=== PATIENT | female | born 1980 | race Two or more races ===

== ENCOUNTER 2024-10-11 18:01 | Emergency (ER) | payer MEDICAID, SELFPAY ==
[2024-10-11 18:20] VITALS: BP 120/75; PULSE 74; RESP 17; TEMP 37; O2SAT 99; BMI 24.7
--- NOTE | 2024-10-11 18:28 | XR_ITS ---
Examination: CT abdomen and pelvis without contrast. Coronal 3-D reconstructions. Sagittal 2-D reconstructions. Date and time of exam:October 11, 2024 at 0740 hrs. Comparison December 03, 2023 Indications: Onset right flank pain beginning 2 days ago, history kidney stones CTDI: vol (mGy): 7.1 DLP: (mGycm): 333 Technique: Axial images of the abdomen have been obtained, 3 mm slice thickness Intravenous contrast material has not been administered. Low dose protocols were performed. One or more of the following dose reduction techniques were used; automated exposure control, adjustment of the mA and/or KV according to patient size, use of iterative reconstruction technique. Findings: No focal liver or splenic lesions Absent gallbladder No pancreatic or adrenal mass 2 mm lower pole right renal calculus, no hydronephrosis or ureteral calculi Aorta normal size No pericecal inflammatory change No bowel obstruction or diverticulitis Retroverted uterus No adnexal mass Trace free fluid in the pelvis Minimal thickening of the urinary bladder wall Osseous structures intact Impression: 2 mm lower pole nonobstructing right renal calculus No CT findings of appendicitis diverticulitis or bowel obstruction Mild cystitis pattern
--- NOTE | 2024-10-11 18:29 | PD.EDRME ---
Rapid Medical Screening Exam RME Arrival date/time: 10/11/24 18:01 44-year-old female with past medical history of cholecystectomy presents emergency department complaining of diffuse abdominal pain and right flank pain that is been ongoing for 2 days. Chief Complaint: Abdominal Pain Time Seen by Provider: 10/11/24 18:15 Vital signs: Vital Signs Temperature 98.6 F 10/11/24 18:20 Pulse Rate 74 10/11/24 18:20 Respiratory Rate 17 10/11/24 18:20 Blood Pressure 120/75 10/11/24 18:20 Pulse Oximetry (%) 99 10/11/24 18:20 Oxygen Delivery Method Room Air 10/11/24 18:20 Vital signs reviewed by provider: Yes
[2024-10-11 18:51] LABS: Basophils % (Auto) 1 % (0-2.5); Eosinophils # (Auto) 0.1 Thou/mm3 (0.0-0.5); Eosinophils % (Auto) 1 % (0-10); Hematocrit 39.3 % (36.0-46.0); Hemoglobin 13.6 g/dL (12.0-16.0); Immature Granulocytes % (Auto) 1 % (0-0); Immature Granulocytes Auto 0.05 Thou/mm3 (0.00-0.00); Lymphocytes # (Auto) 2.9 Thou/mm3 (1.0-4.8); Lymphocytes % (Auto) 44 % (10-50); Mean Corpuscular HGB Conc 34.6 g/dl (31.0-37.0); Mean Corpuscular Hemoglobin 31.6 pg (25.0-35.0); Mean Corpuscular Volume 91 fL (80-100); Monocytes # (Auto) 0.5 Thou/mm3 (0.0-0.8); Monocytes % (Auto) 8 % (0-12); Neutrophils # (Auto) 3.1 Thou/mm3 (1.8-7.7); Neutrophils % (Auto) 47 % (37-80); Nucleated Red Blood Cell % 0 /100 WBC (0); Platelet Count 325 Thou/mm3 (140-440); RDW Standard Deviation 41.6 fL (36.4-46.3); Red Blood Count 4.31 Miln/mm3 (4.00-5.20); White Blood Count 6.6 Thou/mm3 (3.6-11.0)
[2024-10-11 19:04] LABS: Alanine Aminotransferase 10 U/L (10-49); Albumin, Serum 4.7 gm/dL (3.5-5.0); Albumin/Globulin Ratio 1.7 (1.2-2.2); Alkaline Phosphatase 106 U/L (46-116); Anion Gap 10 (7-16); Aspartate Amino Transferase < 10 U/L (0-34); BUN/Creatinine Ratio 12 Ratio (12-20); Bilirubin,Total 0.3 mg/dL (0.3-1.2); Blood Urea Nitrogen 11 mg/dL (9-23); Calcium 9.5 mg/dL (8.3-10.6); Calcium (Corrected) 9.5 mg/dL (8.5-10.1); Carbon Dioxide 23.2 mMol/L (20.0-31.0); Chloride 106 mMol/L (98-107); Creatinine (Component) 0.9 mg/dL (0.6-1.3); Estimated Creatinine Clearance 67.4 mL/min (>60); Globulin 2.7 gm/dL (2.3-3.5); Glucose 97 mg/dL (74-106); Lipase 62 U/L (12-53); Osmolality,Calculated 276 (275-295); Potassium 3.9 mMol/L (3.4-5.1); Sodium 139 mMol/L (136-145); Total Protein 7.4 gm/dL (5.7-8.2); eGFR > 60 See Note
[2024-10-11 19:08] LABS: HCG,Qualitative Serum Negative
[2024-10-11] MEDS: KETOROLAC INJ 60 MG/2 ML VIAL 30 MG IM (19:10)
[2024-10-11 19:36] LABS: Collection Type, Urine Clean Catch; RBC,Urine 0 /hpf (0-3); WBC,Urine 0 /hpf (0-5)
[2024-10-11 19:46] LABS: Bacteria,Urine 1+; Bilirubin,Urine Negative (Negative); Blood,Urine Negative (Negative); Clarity,Urine Clear (Clear/Hazy); Color,Urine Colorless (Lt Yel-Yel); Glucose, Urine Negative (Negative); Ketones,Urine Negative (Negative); Leukocyte Esterase,Urine Positive (Negative); Nitrite,Urine Negative (Negative); Protein,Urine Negative (Neg - Trace); Specific Gravity,Urine 1.013 (1.001-1.035); Squamous Epithelial Cell,Urine 3 /hpf (0-5); Urobilinogen,Urine Negative mg/dL (0.0-1.0)
[2024-10-11 19:47] LABS: Culture Indicated,Urine Yes
--- NOTE | 2024-10-11 20:35 | PD.EDABDPN ---
ED Abdominal Pain RME/HPI General Chief Complaint: Abdominal Pain Stated complaint: ABD AQUINO RADIATING TO RIGHT FLANK x 2 DAYS Time seen by provider: 10/11/24 18:15 Arrival date/time: 10/11/24 18:01 44-year-old female with past medical history of cholecystectomy presents emergency department complaining of diffuse abdominal pain and right flank pain that is been ongoing for 2 days. Patient denies any fever, chills, nausea vomiting, vaginal bleeding, or any other associated symptom. Limitations: no limitations RME / HPI RME / HPI narrative: 10/11/24 18:01 44-year-old female with past medical history of cholecystectomy presents emergency department complaining of diffuse abdominal pain and right flank pain that is been ongoing for 2 days. Related Data Home Medications ?Medication ?Instructions ?Recorded ?Confirmed folic acid 1 mg tablet 1 mg PO BID 30 days ##0 12/20/11 06/15/24 levetiracetam 1,000 mg tablet 1,000 mg PO BID 12/05/18 06/15/24 oxybutynin chloride 5 mg tablet 6 mg BID 04/22/23 06/15/24 sucralfate 1 gram tablet 1 g PO BID 04/22/23 06/15/24 Previous Rx's ?Medication ?Instructions ?Recorded fluconazole 150 mg tablet 150 mg PO .x1 1 dose #1 tab 03/02/24 ciprofloxacin HCl 500 mg tablet 500 mg PO BID #14 tabs 03/23/24 pantoprazole 40 mg tablet,delayed 40 mg PO QDAY #30 tabs 04/06/24 release dicyclomine 10 mg capsule 10 mg PO TID #30 caps 05/12/24 naproxen 250 mg tablet 250 mg PO BID PRN Period cramps 05/12/24 #10 tabs cephalexin 500 mg capsule 500 mg PO BID 7 days #14 caps 10/11/24 ibuprofen 600 mg tablet 600 mg PO Q8H PRN pain #20 tabs 10/11/24 Allergies Allergy/AdvReac Type Severity Reaction Status Date / Time No Known Allergies Allergy Verified 10/11/24 18:04 Review of Systems Review of Systems Systems Reviewed: All systems reviewed, normal except as documented Constitutional Constitutional: Reports system reviewed and no additional complaints, except as documented, Denies body ache(s), Denies chills and Denies fever(s) Eyes Eyes: Reports system reviewed and no additional complaints, except as documented and Denies change in vision ENT Ears, Nose, Mouth, and Throat: Reports system reviewed and no additional complaints, except as documented, Denies disequilibrium, Denies dizziness, Denies sore throat and Denies vertigo Cardiovascular Cardiovascular: Reports system reviewed and no additional complaints, except as documented, Denies chest pain and Denies dyspnea Respiratory Respiratory: Reports system reviewed and no additional complaints, except as documented, Denies chest congestion, Denies cough and Denies dyspnea Gastrointestinal Gastrointestinal: Reports system reviewed and no additional complaints, except as documented, Reports abdominal pain, Denies nausea and Denies vomiting Musculoskeletal Musculoskeletal: Reports system reviewed and no additional complaints, except as documented, Denies abnormal gait and Denies arthralgias Integumentary/Breasts Skin/Breast: Reports system reviewed and no additional complaints, except as documented, Denies erythema, Denies rash and Denies wounds Neurologic Neurologic: Reports system reviewed and no additional complaints, except as documented, Denies abnormal gait, Denies disequilibrium, Denies dizziness and Denies vertigo Past Medical History Past Medical History NEUROLOGIC: Positive Neurological Disorders, Seizures, Epilepsy and Migraine CARDIAC: Negative Cardiac Disorders, Cardiac Arrhythmia, Atrial Fibrillation, Angina, Atherosclerotic Heart Disease, Aneurysm or Congestive Heart Failure RESPIRATORY: Negative Chronic Obstructive Pulmonary Disease (COPD) or Asthma GASTROINTESTINAL: Positive Gastrointestinal Disorders, Gall Bladder Disease and Ulcer GENITOURINARY: Positive Genitourinary Disorders and Kidney Stones; Negative Renal Disease REPRODUCTIVE: Positive Previous Pregnancies MUSCULOSKELETAL: Negative Musculoskeletal Disorders ENDOCRINE: Negative Endocrine Disorders, Diabetes Mellitus Type 1 or Diabetes Mellitus Type 2 HEMATOLOGIC: Negative Blood Disorders or Sickle Cell Disease PSYCHO/SOCIAL: Positive Depression and Anxiety OTHER HISTORY: Positive Hospitalization, Blood Transfusions and Chicken Pox; Negative Autoimmune Disease, Blood Transfusion Reaction, Anesthesia Reactions or Cancer Family History FAMILY HISTORY: Positive Family Respiratory Disorders, Family Cardiac Disorders and Family Cancer; Negative Family Psychiatric Problems, Family Gastrointestinal Problems, Family Surgery or Family Anesthesia Reaction Surgical History SURGICAL: Positive Abdominal Surgery; Negative Cardiac Surgery, Endocrine Surgery, Ear Surgery, Joint Replacement, Neurologic Surgery or Mastectomy Social History SMOKING STATUS: Never smoker ED Exam General Limitations: Present no limitations General appearance: Present alert and in no apparent distress Head Head exam: Present atraumatic Eye Eye exam: Present normal appearance, PERRL and EOMI ENT ENT exam: Present normal exam, normal oropharynx and mucous membranes moist Neck Neck exam: Present normal inspection, full ROM and trachea midline Chest Chest inspection: Present normal inspection and symmetric chest wall rise Respiratory Respiratory exam: Present normal lung sounds bilaterally Cardiovascular Cardiovascular exam: Present regular rate, normal rhythm and normal heart sounds Abdominal Exam Abdominal exam: Present soft and normal bowel sounds Extremities Exam Extremities exam: Present normal inspection and full ROM Back Exam Back exam: Present normal inspection, full ROM and CVA tenderness (R) Neurological Exam Neurological exam: Present alert, oriented X3 and CN II-XII intact Psychiatric Psychiatric exam: Present normal affect and normal mood Skin Skin exam: Present warm, dry, intact and normal color Course Quality Measures none Orders Category Date Time Status CT abdomen pelvis wo con Stat Exams 10/11/24 18:28 Completed CBC Stat Lab 10/11/24 18:37 Completed CMP [Comprehensive Metabolic Panel] Stat Lab 10/11/24 18:37 Completed HCG,Qualitative Serum Stat Lab 10/11/24 18:37 Completed Lipase Stat Lab 10/11/24 18:37 Completed Urinalysis, C/S if Indicated Stat Lab 10/11/24 19:25 Completed Urine Culture Stat Lab 10/11/24 19:25 Received Ketorolac Inj [Toradol Inj] Med 10/11/24 18:29 Discontinued 30 mg IM X1 ONE Vital Signs Vital signs: Vital Signs Temperature 98.6 F 10/11/24 18:20 Pulse Rate 74 10/11/24 18:20 Respiratory Rate 17 10/11/24 18:20 Blood Pressure 120/75 10/11/24 18:20 Pulse Oximetry (%) 99 10/11/24 18:20 Oxygen Delivery Method Room Air 10/11/24 18:20 99% room air within normal limits Abdominal Pain MDM MDM Narrative MDM Narrative:: 44-year-old female with past medical history of cholecystectomy presents emergency department complaining of diffuse abdominal pain and right flank pain that is been ongoing for 2 days. Patient denies any fever, chills, nausea vomiting, vaginal bleeding, or any other associated symptom. CBC unremarkable for any leukocytosis or anemia. CMP was unremarkable for any elevated LFTs or gross electrolyte abnormalities. Urinalysis consistent with UTI. CT findings: No focal liver or splenic lesions Absent gallbladder No pancreatic or adrenal mass 2 mm lower pole right renal calculus, no hydronephrosis or ureteral calculi Aorta normal size No pericecal inflammatory change No bowel obstruction or diverticulitis Retroverted uterus No adnexal mass Trace free fluid in the pelvis Minimal thickening of the urinary bladder wall Osseous structures intact Impression: 2 mm lower pole nonobstructing right renal calculus No CT findings of appendicitis diverticulitis or bowel obstruction Mild cystitis pattern Will treat urinary tract infection. Patient appears nontoxic and is hemodynamically stable. Patient data External records reviewed:: [facility] previous records Clinical information provided by:: patient Social determinants that could affect healthcare access:: none Patient has the following chronic illnesses:: See chart How is presenting disease/condition affected by chronic disease/condition?: uneffected by Evaluation data The following diagnostics were reviewed and interpreted by me:: lab results and radiology exam(s) Lab and/or radiology exams considered but not ordered:: Ordered Interpretation Summary: Interpreted by me Medications / Prescriptions Medications or Prescriptions considered but not ordered:: Ordered Medication administrations:: Medication Administration History Discontinued Medications Ketorolac Tromethamine (Ketorolac Inj 60 Mg/2 Ml Vial) 30 mg IM X1 ONE Stop: 10/11/24 18:30 Last Admin: 10/11/24 19:10 Dose: 30 mg Documented By: SF Given Consultations Consultation(s) initiated? (list below): No Diagnosis Differential diagnosis abdominal pain: abdominal pain, acute appendicitis, calculus of kidney, constipation, diverticulitis, endometriosis, gastroenteritis, pancreatitis and small bowel obstruction Most likely diagnosis given after review of the tests above:: UTI Right renal calculus Admission Indicated Admission indicated?: not indicated Admission Request Was there a request for admission?: No Disposition Plan Disposition Plan: Discharge Discharge Attestation Discharge Attestation: The patient and all family members were given an opportunity to ask questions and understood the discharge instructions. Discharge instructions specifically effects, indications for sooner follow up or return to the emergency department, and the expected course of current diagnosis. Patient condition: Stable Discharge Plan Plan Patient Disposition: HOME (Self Care) Disposition Comment: Stable Prescriptions/Referrals Prescriptions/Med Rec: New cephalexin 500 mg capsule 500 mg PO BID 7 Days Qty: 14 0RF ibuprofen 600 mg tablet 600 mg PO Q8H PRN (Reason: pain) Qty: 20 0RF No Action dicyclomine 10 mg capsule 10 mg PO TID Qty: 30 0RF naproxen 250 mg tablet 250 mg PO BID PRN (Reason: Period cramps) Qty: 10 0RF fluconazole 150 mg tablet 150 mg PO .x1 Qty: 1 0RF ciprofloxacin HCl 500 mg tablet 500 mg PO BID Qty: 14 0RF pantoprazole 40 mg tablet,delayed release (DR/EC) 40 mg PO QDAY Qty: 30 0RF folic acid 1 MG tablet 1 mg PO BID 30 Days Qty: 0 levetiracetam 1,000 mg Tablet 1,000 mg PO BID Rx Instructions: 1 tab in am, 2 tabs at hs sucralfate 1 gram tablet 1 g PO BID Patient Comments: TAKE 1 TABLET BY MOUTH TWICE A DAY FOR STOMACH oxybutynin chloride 5 mg tablet 6 mg BID Patient Comments: TAKE 1 TABLET BY MOUTH TWICE A DAY FOR URINE Referrals: Aleksandr Andrade MD [Primary Care Provider] - In 1 week Problem List Clinical Impression: UTI (urinary tract infection), Renal calculus, right Patient/Caregiver Discharge Instructions Discharge Activity: activity as tolerated Education Materials: Preventing Kidney Stones, ED CYSTITIS Female Adult Additional Instructions: Drink plenty of fluids and stay hydrated. Take antibiotics as prescribed. Follow-up with primary care provider in 2 to 3 days. Return to emergency department for any worsening symptoms or as needed. Print Language: Slovenian Stand Alone Forms: [facility] Award Info., Patient Portal Info Letter PA/OVERHEAD IRRIGATOR Supervising Physician PA/JUDITH Supervising Physician: Dr. Payton
== END 2024-10-11 20:48 | disposition home or self-care (01) ==
PROVIDERS: Emergency Provider Emergency Medicine; PCP Psychiatry & Neurology Neurology
DX: N39.0 Urinary tract infection, site not specified (principal); N20.0 Calculus of kidney; Z90.49 Acquired absence of other specified parts of digestive tract
CPT/HCPCS: 36415; 74176; 80053; 81001; 83690; 84703; 85025; 87086; 96372; 99284; J1885

== ENCOUNTER → 2025-01-27 | Outpatient (CLI) | payer MEDICAID, SELFPAY ==
--- NOTE | 2025-01-27 09:00 | XR_ITS ---
Examination: Screening digital mammography, bilateral Computer aided detection 3-D breast Tomosynthesis, bilateral Date and time of exam: January 27, 2025 0839 hours Compared to mammograms dating to November 28, 2021 Indication: Screening Technique: Nonmagnified MLO, CC views of the breasts to been obtained, reconstructed from 3-D Tomosynthesis images. R2 computer aided detection program utilized for evaluation of suspicious masses and/or abnormal calcifications. 3-D Tomosynthesis images obtained. Findings: The breasts are heterogeneously dense, which may obscure small masses Stable nodule inner left breast, 12 mm Breast biopsy marker outer left breast anterior depth Impression: BI-RADS Category 0 clinical pain: Need additional imaging evaluation Bilateral breast sonography follow-up is needed, especially 2 compared to the left breast sonogram nodules described on ultrasound July 10, 2024
== END | disposition home or self-care (01) ==
LOC: CDIM 08:23
PROVIDERS: Referring Provider Physician Assistant; Visit Provider Physician Assistant
DX: Z12.31 Encounter for screening mammogram for malignant neoplasm of breast (principal); N63.20 Unspecified lump in the left breast, unspecified quadrant
CPT/HCPCS: 77063; 77067

== ENCOUNTER 2025-02-02 02:07 | Emergency (ER) | payer MEDICAID, SELFPAY ==
[2025-02-02 02:08] VITALS: BMI 25.4
[2025-02-02 02:33] VITALS: BP 108/74; PULSE 77; RESP 16; TEMP 36.8; O2SAT 98
[2025-02-02 05:41] VITALS: BP 116/79; PULSE 70; RESP 18; TEMP 36.8; O2SAT 100
--- NOTE | 2025-02-02 06:19 | PD.EDRME ---
Rapid Medical Screening Exam RME Arrival date/time: 02/02/25 02:07 44-year-old female presents to the emergency department today with complaint of abdominal pain ongoing x 3 days Chief Complaint: Abdominal Pain Vital signs: Vital Signs Temperature 98.3 F 02/02/25 02:33 Pulse Rate 77 02/02/25 02:33 Respiratory Rate 16 02/02/25 02:33 Blood Pressure 108/74 02/02/25 02:33 Pulse Oximetry (%) 98 02/02/25 02:33 Oxygen Delivery Method Room Air 02/02/25 02:33
[2025-02-02 06:48] LABS: Collection Type, Urine Clean Catch; RBC,Urine 0 /hpf (0-3); WBC,Urine 0 /hpf (0-5)
[2025-02-02 07:29] LABS: Bilirubin,Urine Negative (Negative); Blood,Urine Negative (Negative); Clarity,Urine Turbid (Clear/Hazy); Color,Urine Lt-Yellow (Lt Yel-Yel); Culture Indicated,Urine Not Indicated; Glucose, Urine Negative (Negative); Ketones,Urine Negative (Negative); Leukocyte Esterase,Urine Negative (Negative); Nitrite,Urine Negative (Negative); Protein,Urine Negative (Neg - Trace); Specific Gravity,Urine 1.016 (1.001-1.035); Squamous Epithelial Cell,Urine 3 /hpf (0-5); Urobilinogen,Urine Negative mg/dL (0.0-1.0)
[2025-02-02 07:30] LABS: HCG Qualitative,Urine Negative
[2025-02-02 07:34] LABS: Basophils % (Auto) 0 % (0-2.5); Eosinophils % (Auto) 1 % (0-10); Hematocrit 39.9 % (36.0-46.0); Hemoglobin 13.7 g/dL (12.0-16.0); Immature Granulocytes % (Auto) 0 % (0-0); Immature Granulocytes Auto 0.02 Thou/mm3 (0.00-0.00); Lymphocytes # (Auto) 1.6 Thou/mm3 (1.0-4.8); Lymphocytes % (Auto) 25 % (10-50); Mean Corpuscular HGB Conc 34.3 g/dl (31.0-37.0); Mean Corpuscular Hemoglobin 31.4 pg (25.0-35.0); Mean Corpuscular Volume 92 fL (80-100); Monocytes # (Auto) 0.3 Thou/mm3 (0.0-0.8); Monocytes % (Auto) 5 % (0-12); Neutrophils # (Auto) 4.3 Thou/mm3 (1.8-7.7); Neutrophils % (Auto) 68 % (37-80); Nucleated Red Blood Cell % 0 /100 WBC (0); Platelet Count 336 Thou/mm3 (140-440); RDW Standard Deviation 41.1 fL (36.4-46.3); Red Blood Count 4.36 Miln/mm3 (4.00-5.20); White Blood Count 6.3 Thou/mm3 (3.6-11.0)
[2025-02-02 08:04] LABS: Alanine Aminotransferase 7 U/L (10-49); Albumin, Serum 4.6 gm/dL (3.5-5.0); Albumin/Globulin Ratio 1.8 (1.2-2.2); Alkaline Phosphatase 111 U/L (46-116); Anion Gap 7 (7-16); Aspartate Amino Transferase 12 U/L (0-34); BUN/Creatinine Ratio 6 Ratio (12-20); Bilirubin,Total 0.5 mg/dL (0.3-1.2); Blood Urea Nitrogen < 5 mg/dL (9-23); Calcium 8.9 mg/dL (8.3-10.6); Calcium (Corrected) 8.9 mg/dL (8.5-10.1); Carbon Dioxide 22.6 mMol/L (20.0-31.0); Chloride 112 mMol/L (98-107); Creatinine (Component) 0.9 mg/dL (0.6-1.3); Estimated Creatinine Clearance 68.4 mL/min (>60); Globulin 2.6 gm/dL (2.3-3.5); Glucose 112 mg/dL (74-106); Lipase 41 U/L (12-53); Osmolality,Calculated 281 (275-295); Potassium 3.8 mMol/L (3.4-5.1); Sodium 142 mMol/L (136-145); Total Protein 7.2 gm/dL (5.7-8.2); Troponin I < 0.002 ng/mL (0.0-0.045); eGFR > 60 See Note
--- NOTE | 2025-02-02 08:18 | EDNOTE_ITS ---
ED Abdominal Pain RME/HPI General Chief Complaint: Abdominal Pain Stated complaint: ABD PAIN VOMITING Arrival date/time: 02/02/25 02:07 Limitations: no limitations RME / HPI RME / HPI narrative: 02/02/25 02:07 44-year-old female presents to the emergency department today with complaint of abdominal pain ongoing x [address] TRINH MAIN ED EVALUATION: 44 year old female presents to the Emergency Department with complaint of upper abdominal pain, mainly in the right upper quadrant area, onset 3 days. Associated symptoms include nausea and vomiting. No diarrhea. No fevers or chil ls. No hematuria. No other symptoms reported at this time. PMHx: Recurrent urinary tract infection, seizures, anxiety, benign breast lumps which were last in March 2023, and cholecystectomy. She also reports a surgery at age 7 for swallowing gum . Social Hx: No tobacco, alcohol, or substance use. Related Data Home Medications ?Medication ?Instructions ?Recorded ?Confirmed folic acid 1 mg tablet 1 mg PO BID 30 days ##0 11/2906/15/24 levetiracetam 1,000 mg tablet 1,000 mg PO BID 12/05/18 06/15/24 oxybutynin chloride 5 mg tablet 6 mg BID 04/22/2305/31 sucralfate 1 gram tablet 1 g PO BID 04/22/23 06/15/24 Previous Rx's ?Medication ?Instructions ?Recorded fluconazole 150 mg tablet 150 mg PO .x1 1 dose #1 tab 03/02/24 ciprofloxacin HCl 500 mg tablet 500 mg PO BID #14 tabs 03/23/24 pantoprazole 40 mg tablet,delayed 40 mg PO QDAY #30 ta bs 04/06/24 release dicyclomine 10 mg capsule 10 mg PO TID #30 caps naproxen 250 mg tablet 250 mg PO BID PRN Period mobile crane operator mps 05/12/24 #10 tabs ibuprofen 600 mg tablet 600 mg PO Q8H PRN pain #20 t abs 10/11/24 pantoprazole 40 mg granules 40 mg PO QDAY #30 ea 02/02 delayed-release for susp in packet (Protonix) Allergies Allergy/AdvReac Type Severity Reaction Status Date / Time No Known Allergies Allergy Verified 10/11/24 18:04 Review of Systems Review of Systems Systems Reviewed: All systems reviewed, normal except as documented Narrative Review of Systems: GEN: No fever, no chills, no weight loss EYES: No discharge, no visual changes, no pain HEENT: No ear pain, no congestion, no sore throat PULM: No shortness of breath, no cough, no congestion CV: No chest pain, no dyspnea on exertion, no palpitations GI: + nausea, + vomiting, no diarrhea, + upper abdominal pain mainly in the right upper quadrant area, no constipation : No frequency, no urgency and no dysuria MUSC/SKEL: No joint pain, no back pain SKIN: No rash PSYCH: No hallucinations, no depression HEME/LYMPH: No easy bleeding or bruising tendencies NEURO: No weakness, no headache Past Medical History Past Medical History NEUROLOGIC: Positive Neurological Disorders, Seizures, Epilepsy and Migraine GASTROINTESTINAL: Positive Gastrointestinal Disorders, Gall Bladder Disease and Ulcer GENITOURINARY: Positive Genitourinary Disorders and Kidney Stones REPRODUCTIVE: Positive Previous Pregnancies PSYCHO/SOCIAL: Positive Depression and Anxiety OTHER HISTORY: Positive Hospitalization, Blood Transfusions and Chicken Pox Family History FAMILY HISTORY: Positive Family Respiratory Disorders, Family Cardiac Disorders and Family Cancer Surgical History SURGICAL: Positive Abdominal Surgery Social History SMOKING STATUS: Never smoker SUBSTANCE USE: does not use ALCOHOL: Never ED Exam General Limitations: Present no limitations General appearance: Present alert and in no apparent distress Head Head exam: Present atraumatic, normocephalic and normal inspection Eye Eye exam: Present normal appearance, PERRL and EOMI ENT ENT exam: Present normal exam, normal oropharynx and mucous membranes moist Neck Neck exam: Present normal inspection, full ROM and trachea midline Chest Chest inspection: Present normal inspection and symmetric chest wall rise Respiratory Respiratory exam: Present normal lung sounds bilaterally Cardiovascular Cardiovascular exam: Present regular rate, normal rhythm and normal heart sounds Abdominal Exam Abdominal exam: Present normal bowel sounds Abdominal tenderness: Present RUQ Extremities Exam Extremities exam: Present normal inspection and full ROM Back Exam Back exam: Present normal inspection and full ROM Neurological Exam Neurological exam: Present alert, oriented X3 and CN II-XII intact Psychiatric Psychiatric exam: Present normal affect and normal mood Skin Skin exam: Present warm, dry, intact and normal color Course Quality Measures none Orders Category Date Time Status Discharge Routine Discharge 02/02/25 09:43 Active US abdomen limited Stat Exams 02/02/25 08:18 Completed CBC Stat Lab 02/02/25 07:20 Completed Comprehensive Metabolic Panel Stat Lab 02/02/25 07:20 Completed HCG Qualitative,Urine Stat Lab 02/02/25 06:42 Completed Lipase Stat Lab 02/02/25 07:20 Completed Troponin I Stat Lab 02/02/25 07:20 Completed UA, C/S IF [Urinalysis, C/S if Indicated] Stat Lab 02/02/25 06:42 Completed Famotidine [Pepcid] Med 02/02/25 09:43 Discontinued 40 mg PO X1 ONE Pantoprazole [Protonix] Med 02/02/25 09:43 Discontinued 40 mg PO X1 ONE Vital Signs Vital signs: Vital Signs Temperature 98.3 F 02/02/25 02:33 Pulse Rate 77 02/02/25 02:33 Respiratory Rate 16 02/02/25 02:33 Blood Pressure 108/74 02/02/25 02:33 Pulse Oximetry (%) 98 02/02/25 02:33 Oxygen Delivery Method Room Air 02/02/25 02:33 Abdominal Pain MDM MDM Narrative MDM Narrative:: I, Elo Rivera am scribing for and in the presence of Dr. Trinh. Patient workup was positive for possibility of involvement of common bile duct She is status postcholecystectomy The lab did not indicate presence of risk factors for common bile duct stone Ultrasound was also unremarkable, bile duct size was normal Otherwise her examination does not reveal any possibility of pancreatitis versus surgical abdomen versus diverticulitis This is most likely gastritis Managed with Protonix Will give first dose here in the ER Prescription was given to the patient She was discharged good condition Patient data External records reviewed:: [facility] previous records (Reviewed last ED visit dated 10/11/24, discharged with the following: Renal calculus, right) Clinical information provided by:: patient Social determinants that could affect healthcare access:: none Patient has the following chronic illnesses:: Recurrent urinary tract infection, seizures, anxiety, benign breast lumps which were last in March 2023, and cholecystectomy. She also reports a surgery at age 7 for swallowing gum . How is presenting disease/condition affected by chronic disease/condition?: exacerbated by Evaluation data The following diagnostics were reviewed and interpreted by me:: lab results and radiology exam(s) Lab and/or radiology exams considered but not ordered:: none Interpretation Summary: U/A negative US negative (see below). RADIOLOGY Procedure(s): US abdomen limited Accession Number(s): [id number] cc: Lakhwinder Trinh MD; Zan Georges MD; Dieter Hoyt MD~ Examination: Abdomen sonogram, Limited Date and time of exam: February 02, 2025 0843 hours INDICATIONS: Onset right upper abdominal pain beginning 3 days ago, history cholecystectomy Technique: Real-time mathis scale transabdominal sonographic images of the upper abdomen obtained. Findings: Absent gallbladder Normal common bile duct 0.3 cm Pancreatic head 1.8 cm Liver 16.5 cm no focal liver lesions Normal hepatopedal portal venous flow Patent IVC IMPRESSION: Normal common bile duct Mild hepatomegaly Dictated By: Dieter Hoyt MD Medications / Prescriptions Medications or Prescriptions considered but not ordered:: none Medication administrations:: Medication Administration History Discontinued Medications Famotidine (Famotidine 20 Mg Tablet) 40 mg PO X1 ONE Stop: 02/02/25 09:44 Pantoprazole Sodium (Pantoprazole 40 Mg Tablet) 40 mg PO X1 ONE Stop: 02/02/25 09:44 Plan to give protonix and pepsin. Consultations Consultation(s) initiated? (list below): No Diagnosis Differential diagnosis abdominal pain: abdominal pain and other (UTI, gallstones) Most likely diagnosis given after review of the tests above:: Gastritis Admission Indicated Admission indicated?: not indicated Admission Request Was there a request for admission?: No Disposition Plan Disposition Plan: Discharge Discharge Attestation Discharge Attestation: The patient and all family members were given an opportunity to ask questions and understood the discharge instructions. Discharge instructions specifically effects, indications for sooner follow up or return to the emergency department, and the expected course of current diagnosis. Patient condition: Stable Discharge Plan Plan Patient Disposition: HOME (Self Care) Patient condition on transfer: Stable Prescriptions/Referrals Prescriptions/Med Rec: New pantoprazole [Protonix] [address] for susp in packet 40 mg PO QDAY Qty: 30 0RF No Action dicyclomine 10 mg capsule 10 mg PO TID Qty: 30 0RF naproxen 250 mg tablet 250 mg PO BID PRN (Reason: Period cramps) Qty: 10 0RF fluconazole 150 mg tablet 150 mg PO .x1 Qty: 1 0RF ciprofloxacin HCl 500 mg tablet 500 mg PO BID Qty: 14 0RF pantoprazole 40 mg tablet,delayed release (DR/EC) 40 mg PO QDAY Qty: 30 0RF folic acid 1 MG tablet 1 mg PO BID 30 Days Qty: 0 levetiracetam 1,000 mg Tablet 1,000 mg PO BID Rx Instructions: 1 tab in am, 2 tabs at hs sucralfate 1 gram tablet 1 g PO BID Patient Comments: TAKE 1 TABLET BY MOUTH TWICE A DAY FOR STOMACH oxybutynin chloride 5 mg tablet 6 mg BID Patient Comments: TAKE 1 TABLET BY MOUTH TWICE A DAY FOR URINE ibuprofen 600 mg tablet 600 mg PO Q8H PRN (Reason: pain) Qty: 20 0RF Referrals: Zan Georges MD [Primary Care Provider] - In 1 week Problem List Clinical Impression: Gastritis Patient/Caregiver Discharge Instructions Education Materials: ED Gastritis (Adult) Print Language: Lao Stand Alone Forms: [facility] Award Info., Patient Portal Info Letter
[2025-02-02 08:35] VITALS: BP 104/64; PULSE 64; RESP 18; TEMP 36.8; O2SAT 100
[2025-02-02] MEDS: PANTOPRAZOLE 40 MG TABLET PO (09:57)
[2025-02-02] MEDS: FAMOTIDINE 20 MG TABLET 40 MG PO (09:57)
== END 2025-02-02 10:04 | disposition home or self-care (01) ==
PROVIDERS: Nurse Practitioner Primary Care; Emergency Provider Emergency Medicine; PCP Family Medicine
DX: K29.70 Gastritis, unspecified, without bleeding (principal)
CPT/HCPCS: 36415; 76705; 80053; 81001; 81025; 83690; 84484; 85025; 99284; A9270

== ENCOUNTER 2025-03-29 17:43 | Emergency (ER) | payer MEDICAID, SELFPAY ==
[2025-03-29 17:51] VITALS: BMI 20.5
[2025-03-29 17:53] VITALS: BP 126/73; PULSE 95; RESP 13; TEMP 36.8; O2SAT 100
--- NOTE | 2025-03-29 18:46 | PD.EDSEIZ ---
ED Seizures RME/HPI General Chief Complaint: Seizure Stated Complaint: SEIZURE Time Seen by Provider: 03/29/25 18:46 Arrival date/time: 03/29/25 17:43 Limitations: no limitations RME / HPI RME / HPI Narrative: 45yo female with a history of seizures, anxiety presents to the ED for a chief complaint of seizure-like activity. Son states the patient was in the cafeteria when she started shaking, reporting she dropped her cup. Son states he held the patient up for 3-4 minutes until the patient's shaking resolved. Afterwards, she started mumbling for ~1 minute then was crying. Patient states her last seizure was on 03/23/25. No falls or injuries. Patient has been compliant with her Keppra, Oxcarbazepine, and Zonisamide. Her neurologist is Lupe. Patient denies any fever, chills or any other associated symptoms. NKA. Related Data Home Medications ?Medication ?Instructions ?Recorded ?Confirmed folic acid 1 mg tablet 1 mg PO BID 30 days ##0 12/20/11 06/15/24 levetiracetam 1,000 mg tablet 1,000 mg PO BID 12/05/18 06/15/24 oxybutynin chloride 5 mg tablet 6 mg BID 04/22/23 06/15/24 sucralfate 1 gram tablet 1 g PO BID 04/22/23 06/15/24 Previous Rx's ?Medication ?Instructions ?Recorded fluconazole 150 mg tablet 150 mg PO .x1 1 dose #1 tab 03/02/24 ciprofloxacin HCl 500 mg tablet 500 mg PO BID #14 tabs 03/23/24 pantoprazole 40 mg tablet,delayed 40 mg PO QDAY #30 tabs 04/06/24 release dicyclomine 10 mg capsule 10 mg PO TID #30 caps 05/12/24 naproxen 250 mg tablet 250 mg PO BID PRN Period cramps 05/12/24 #10 tabs ibuprofen 600 mg tablet 600 mg PO Q8H PRN pain #20 tabs 10/11/24 pantoprazole 40 mg granules 40 mg PO QDAY #30 ea 02/02/25 delayed-release for susp in packet (Protonix) clonazepam 0.5 mg tablet (Klonopin) 0.5 mg PO BID #8 tabs 03/29/25 Allergies Allergy/AdvReac Type Severity Reaction Status Date / Time No Known Allergies Allergy Verified 10/11/24 18:04 Review of Systems Review of Systems Systems Reviewed: All systems reviewed, normal except as documented ED Exam General Limitations: Present no limitations General appearance: Present alert and in no apparent distress Head Head exam: Present atraumatic Eye Eye exam: Present normal appearance, PERRL and EOMI ENT ENT exam: Present normal exam, normal oropharynx and mucous membranes moist Neck Neck exam: Present normal inspection, full ROM and trachea midline Chest Chest inspection: Present normal inspection and symmetric chest wall rise Respiratory Respiratory exam: Present normal lung sounds bilaterally Cardiovascular Cardiovascular exam: Present regular rate, normal rhythm and normal heart sounds Abdominal Exam Abdominal exam: Present soft and normal bowel sounds Extremities Exam Extremities exam: Present normal inspection and full ROM Back Exam Back exam: Present normal inspection and full ROM Neurological Exam Neurological exam: Present alert, oriented X3 and CN II-XII intact; Absent motor sensory deficit Psychiatric Psychiatric exam: Present normal affect and normal mood Skin Skin exam: Present warm, dry, intact and normal color Course Quality Measures none Orders Category Date Time Status clonazePAM [KlonoPIN] Med 03/29/25 18:46 Discontinued 0.5 mg PO X1 ONE Vital Signs Vital signs: Vital Signs Temperature 98.3 F 03/29/25 17:53 Pulse Rate 95 03/29/25 17:53 Respiratory Rate 13 03/29/25 17:53 Blood Pressure 126/73 03/29/25 17:53 Pulse Oximetry (%) 100 03/29/25 17:53 Oxygen Delivery Method Room Air 03/29/25 17:53 Seizure MDM Narrative MDM Narrative:: Scribe Attestation: 03/29/25 Paula Richter am scribing for and in the presence of Dr. De Souza. Patient has normal motor activity. Her symptoms could be anxiety-induced vs nonconvulsive epilepsy vs partial seizures or absent seizures. They are difficult to differentiate. Patient needs an EEG, although her symptoms are not life-threatening. Plan: Patient can be treated with clonazepam 0.5mg and needs to follow-up with her neurologist. Patient data External records reviewed:: [facility] previous records (Per chart review, patient was seen here on 02/02/25 for gastritis.) Clinical information provided by:: patient and family (son) Social determinants that could affect healthcare access:: mental health Patient has the following chronic illnesses:: seizures, anxiety How is presenting disease/condition affected by chronic disease/condition?: caused by Evaluation data The following diagnostics were reviewed and interpreted by me:: other (specify) (none) Lab and/or radiology exams considered but not ordered:: none Interpretation Summary: none Medications / Prescriptions Medications or Prescriptions considered but not ordered:: none Medication administrations:: Medication Administration History Discontinued Medications Clonazepam (Clonazepam 0.5 Mg Tablet) 0.5 mg PO X1 ONE Stop: 03/29/25 18:47 see above Consultations Consultation(s) initiated? (list below): No Admission Indicated Admission indicated?: not indicated Admission Request Was there a request for admission?: No Disposition Plan Disposition Plan: Discharge Discharge Attestation Discharge Attestation: The patient and all family members were given an opportunity to ask questions and understood the discharge instructions. Discharge instructions specifically effects, indications for sooner follow up or return to the emergency department, and the expected course of current diagnosis. Patient condition: Stable Discharge Plan Plan Patient Disposition: HOME (Self Care) Patient condition on transfer: Stable Prescriptions/Referrals Prescriptions/Med Rec: New clonazepam [Klonopin] 0.5 mg tablet 0.5 mg PO BID Qty: 8 0RF No Action dicyclomine 10 mg capsule 10 mg PO TID Qty: 30 0RF naproxen 250 mg tablet 250 mg PO BID PRN (Reason: Period cramps) Qty: 10 0RF fluconazole 150 mg tablet 150 mg PO .x1 Qty: 1 0RF ciprofloxacin HCl 500 mg tablet 500 mg PO BID Qty: 14 0RF pantoprazole 40 mg tablet,delayed release (DR/EC) 40 mg PO QDAY Qty: 30 0RF folic acid 1 MG tablet 1 mg PO BID 30 Days Qty: 0 levetiracetam 1,000 mg Tablet 1,000 mg PO BID Rx Instructions: 1 tab in am, 2 tabs at hs sucralfate 1 gram tablet 1 g PO BID Patient Comments: TAKE 1 TABLET BY MOUTH TWICE A DAY FOR STOMACH oxybutynin chloride 5 mg tablet 6 mg BID Patient Comments: TAKE 1 TABLET BY MOUTH TWICE A DAY FOR URINE ibuprofen 600 mg tablet 600 mg PO Q8H PRN (Reason: pain) Qty: 20 0RF pantoprazole [Protonix] [address] for susp in packet 40 mg PO QDAY Qty: 30 0RF Problem List Clinical Impression: Anxiety, Partial motor seizures, Focal seizure Patient/Caregiver Discharge Instructions Education Materials: Anxiety Disorders Tx Therapy, Partial Seizures: Know What to Do Additional Instructions: Make sure to follow-up with your neurologist The diagnosing of partial seizures versus nonepileptic seizures is very difficult without EEG I did give you a benzodiazepine for possibility of anxiety However you need to follow-up with a neurologist and get his opinion about your medications whether he needs to be changed or increase the dose or adding more because these are based on multiple factors including and most important is the EEG Print Language: Austrian Stand Alone Forms: [facility] Award Info., Patient Portal Info Letter
--- NOTE | 2025-04-01 20:52 | PC.NURSE ---
2051 PT REQUESTING RETURN CALL CONCERNING HER PRESCRIPTION THAT SHE HAS NOT RECEIVED THIS NURSE NOTED THAT PRESCRIPTION WAS PRINTED AND PT STATED THAT SHE DID NOT GET HER PAPERWORK WHEN SHE LEFT THE ED. I TOLD HER PRESCRIPTION WAS FOR MARCH 29 2025 AND THAT IT WAS NOT SENT TO PHARMACY SHE WAS TO HAND IT TO PHARMACY. PT CALLED ME A FUCKING IDIOT AND TO STOP CALLING HER I REMINDED PT THAT SHE CALLED AND WANTED INFORMATION.
== END 2025-03-29 19:58 | disposition home or self-care (01) ==
LOC: SERX 19:21
PROVIDERS: Emergency Provider Emergency Medicine
DX: R56.9 Unspecified convulsions (principal); F41.9 Anxiety disorder, unspecified
CPT/HCPCS: 99281

== ENCOUNTER → 2025-07-20 | Outpatient (CLI) | payer MEDICAID, SELFPAY ==
--- NOTE | 2025-07-20 10:45 | XR_ITS ---
EXAMINATION: Thyroid sonography complete TECHNIQUE: Grayscale sonographic images thyroid lobes Date and time: July 20, 2025, 1019 hours, comparison 2023 INDICATIONS: Difficulty swallowing, diagnosis hyperthyroidism 5 years ago. FINDINGS: Right thyroid 4.2 cm Left thyroid 4.0 cm No thyroid nodules IMPRESSION: No thyroid nodules, given the patient's presentation, consider correlation with oral I-123 thyroid uptake and scan
== END | disposition home or self-care (01) ==
PROVIDERS: PCP Physician Assistant; Referring Provider Physician Assistant; Visit Provider Physician Assistant
DX: E05.90 Thyrotoxicosis, unspecified without thyrotoxic crisis or storm (principal); R13.10 Dysphagia, unspecified
CPT/HCPCS: 76536

== ENCOUNTER → 2025-08-03 | Outpatient (CLI) | payer MEDICAID, SELFPAY ==
--- NOTE | 2025-08-03 08:50 | XR_ITS ---
EXAM: Single contrast barium esophagram INDICATION: Dysphagia DATE: 8:00 a.m. Fluoroscopy time: 1.4 minutes Dose: 50.58 mGy PROCEDURE: Single contrast barium esophagram performed in multiple positions and multiple projections. Liquid barium contrast passes normally from the oropharynx through the esophagus into the stomach without evidence of delay. No evidence of esophageal mass, stricture, filling defect or diverticulum. No evidence of hiatal hernia or gastroesophageal reflux demonstrated during the exam. IMPRESSION: Negative single contrast barium esophagram.
== END | disposition home or self-care (01) ==
LOC: SDIM 08:38
PROVIDERS: PCP Physician Assistant; Referring Provider Physician Assistant; Visit Provider Physician Assistant
DX: R13.10 Dysphagia, unspecified (principal)
CPT/HCPCS: 74220; A4649